=== PATIENT | female | born 1935 | race Caucasian/White ===

== ENCOUNTER 2021-09-02 15:31 | Inpatient (IN) | payer MEDICARE ==
[~2021-09-02] VITALS: Ht 154.9 cm; Wt 100.8 kg
[~2021-09-02 15:31] MED LIST: IBUPROFEN800 MG PO
[2021-09-02 16:27] LABS: BASOPHIL 0.6 % (0-2); EOSINOPHIL 5.8 % (0-7); HCT 35.6 % (37.0-47.0); LYMPHOCYTE 29.4 % (15-48); MCH 30.1 pg (25.0-31.0); MCHC 30.9 g/dL (32.0-36.0); MCV 97.5 fL (78.0-100.0); MONOCYTE 8.9 % (0-12); MPV 9.7 fL (6.0-9.5); NEUTROPHIL 55.2 % (41-80); NRBC 0; PLT 218 K/uL (150-400); RBC 3.65 M/uL (4.20-5.40); RDW 14.5 % (11.5-14.0); WBC 6.8 K/uL (4.0-10.5)
[2021-09-02 16:35] LABS: INR 1.12 (0.9-1.2); PROTHROMBIN TIME 13.8 SECONDS (11.8-13.4); PTT 28.9 SECONDS (24.4-34.7)
[2021-09-02 16:59] LABS: BILIRUBIN NEGATIVE (NEGATIVE); BLOOD NEGATIVE Ery/uL (NEGATIVE); CLARITY CLEAR (CLEAR); COLOR YELLOW (YELLOW); GLUCOSE (U) NORMAL (NORMAL); LEUKOCYTES NEGATIVE Leu/uL (NEGATIVE); NITRITE NEGATIVE (NEGATIVE); PROTEIN NEGATIVE (NEGATIVE); UROBILINOGEN 0.2 mg/dL (0.2-1.0)
[2021-09-02 17:09] LABS: ALBUMIN 3.2 g/dL (3.4-5.0); BILIRUBIN - TOTAL 0.2 mg/dL (0.2-1.0); BUN/CREAT RATIO (CALC) 26.3 RATIO; C-REACTIVE PROTEIN 2.4 mg/dL (<=0.90); CREATININE 0.95 mg/dL (0.51-0.95); FT4 (FREE T4) 0.8 ng/dL (0.76-1.46); GLOBULIN (CALCULATION) 3.8 g/dL; MAGNESIUM 2.1 mg/dL (1.8-2.4); POTASSIUM 3.2 mmol/L (3.5-5.1)
[2021-09-02] MEDS ORDERED: ACETAMINOPHEN500 M1 PO (21:42)
[2021-09-02] MEDS ORDERED: DIAMOX250 MG PO (21:43)
[2021-09-02] MEDS ORDERED: ASPIRIN EC325 MG PO (21:44)
[2021-09-02] MEDS ORDERED: COLACE100 MG PO (21:44)
[2021-09-02] MEDS ORDERED: DORZOLAMIDE-TI1 EACH EYEBOTH (21:45)
[2021-09-02] MEDS ORDERED: CYMBALTA 30MG C30 MG PO ×3 (21:46→21:47)
[2021-09-02] MEDS ORDERED: LASIX20 MG PO (21:51)
[2021-09-02] MEDS ORDERED: HYDROCODON-ACE1 EAC2 PO (21:52)
[2021-09-02] MEDS ORDERED: IRON325 M1 PO ×2 (21:52→21:54)
[2021-09-02] MEDS ORDERED: SYNTHROID25 MCG PO (21:56)
[2021-09-02] MEDS ORDERED: CLARITIN10 MG PO (21:56)
[2021-09-02] MEDS ORDERED: LUMIGAN5 ML OU (21:56)
[2021-09-02] MEDS ORDERED: ROBAXIN500 MG PO (21:57)
[2021-09-02] MEDS ORDERED: PILOCARPINE HCL OD (21:58)
[2021-09-02] MEDS ORDERED: PRILOSEC20 MG PO (21:58)
[2021-09-02] MEDS ORDERED: PINDOLOL5 MG PO (22:00)
[2021-09-02] MEDS ORDERED: KLOR-CON 1010 MEQ PO (22:02)
[2021-09-02] MEDS ORDERED: PRESERVISION A1 EACH PO (22:03)
[2021-09-02] MEDS ORDERED: TRIAMCINOLONE 080 GM TOP (22:04)
[2021-09-02] MEDS ORDERED: VITAMIN B-121000 MC1 PO (22:05)
[2021-09-02] MEDS ORDERED: TUMS200 MG PO (22:05)
[2021-09-02] MEDS ORDERED: VITAMIN D31250 MC1 PO (22:06)
[2021-09-03 05:54] LABS: BASOPHIL 0.5 % (0-2); EOSINOPHIL 5.7 % (0-7); HCT 35.7 % (37.0-47.0); LYMPHOCYTE 30.7 % (15-48); MCH 29.8 pg (25.0-31.0); MCHC 30.8 g/dL (32.0-36.0); MCV 96.7 fL (78.0-100.0); MONOCYTE 8.7 % (0-12); MPV 9.7 fL (6.0-9.5); NEUTROPHIL 54.1 % (41-80); NRBC 0; PLT 231 K/uL (150-400); RBC 3.69 M/uL (4.20-5.40); RDW 14.5 % (11.5-14.0); WBC 7.6 K/uL (4.0-10.5)
[2021-09-03 06:21] LABS: BUN/CREAT RATIO (CALC) 25.3 RATIO; CREATININE 0.87 mg/dL (0.51-0.95); POTASSIUM 2.8 mmol/L (3.5-5.1)
[2021-09-03 18:41] LABS: BUN/CREAT RATIO (CALC) 26.1 RATIO; CREATININE 0.92 mg/dL (0.51-0.95); POTASSIUM 3.6 mmol/L (3.5-5.1)
[2021-09-04 06:09] LABS: BASOPHIL 0.5 % (0-2); EOSINOPHIL 5.7 % (0-7); HCT 35.8 % (37.0-47.0); HGB 10.8 g/dl (12.5-16.0); LYMPHOCYTE 24.5 % (15-48); MCH 29.6 pg (25.0-31.0); MCHC 30.2 g/dL (32.0-36.0); MCV 98.1 fL (78.0-100.0); MONOCYTE 8.9 % (0-12); MPV 9.7 fL (6.0-9.5); NEUTROPHIL 60.1 % (41-80); NRBC 0; PLT 245 K/uL (150-400); RBC 3.65 M/uL (4.20-5.40); RDW 14.6 % (11.5-14.0); WBC 6.6 K/uL (4.0-10.5)
[2021-09-04 06:39] LABS: BUN/CREAT RATIO (CALC) 25.8 RATIO; CREATININE 0.89 mg/dL (0.51-0.95); MAGNESIUM 1.9 mg/dL (1.8-2.4); POTASSIUM 3.5 mmol/L (3.5-5.1)
[2021-09-05 06:01] LABS: BASOPHIL 0.4 % (0-2); EOSINOPHIL 6.2 % (0-7); HCT 38.4 % (37.0-47.0); HGB 11.6 g/dl (12.5-16.0); LYMPHOCYTE 24.7 % (15-48); MCH 29.3 pg (25.0-31.0); MCHC 30.2 g/dL (32.0-36.0); MONOCYTE 9.8 % (0-12); MPV 9.9 fL (6.0-9.5); NEUTROPHIL 58.6 % (41-80); NRBC 0; PLT 244 K/uL (150-400); RBC 3.96 M/uL (4.20-5.40); RDW 14.5 % (11.5-14.0); WBC 6.9 K/uL (4.0-10.5)
[2021-09-05 06:32] LABS: CREATININE 0.9 mg/dL (0.51-0.95); MAGNESIUM 1.9 mg/dL (1.8-2.4); POTASSIUM 3.2 mmol/L (3.5-5.1)
[2021-09-05] MEDS ORDERED: ELIQUIS5 MG PO ×2 (16:58→17:00)
[2021-09-05] MEDS ORDERED: LOPRESSOR50 MG PO ×2 (16:58→17:00)
[2021-09-05] MEDS ORDERED: LASIX40 MG PO ×2 (16:58→17:00)
[2021-09-05] MEDS ORDERED: POTASSIUM CHLO20 ME1 PO ×2 (16:58→17:00)
[2021-09-05] MEDS ORDERED: DIGITEK125 MCG PO ×2 (16:58→17:00)
== END 2021-09-05 18:55 | disposition home health service (06) | DRG 291 ==
LOC: FER 15:31 → FTCU 20:09
PROVIDERS: Emergency Medicine; Internal Medicine; Nurse Practitioner; Nurse Practitioner Family; ADMIT Allergy & Immunology Allergy
DX: I13.0 Hypertensive heart and chronic kidney disease with heart failure and stage 1 through stage 4 chronic kidney disease, or unspecified chronic kidney disease (principal); I50.31 Acute diastolic (congestive) heart failure; I48.91 Unspecified atrial fibrillation; Z66 Do not resuscitate; Z20.822 Contact with and (suspected) exposure to COVID-19; N18.9 Chronic kidney disease, unspecified; D63.1 Anemia in chronic kidney disease; G47.33 Obstructive sleep apnea (adult) (pediatric); K21.9 Gastro-esophageal reflux disease without esophagitis; E03.9 Hypothyroidism, unspecified; M54.50 Low back pain, unspecified; G89.29 Other chronic pain; I08.1 Rheumatic disorders of both mitral and tricuspid valves; H54.8 Legal blindness, as defined in USA; E78.5 Hyperlipidemia, unspecified; M81.0 Age-related osteoporosis without current pathological fracture; H40.9 Unspecified glaucoma; M41.9 Scoliosis, unspecified; M19.90 Unspecified osteoarthritis, unspecified site; Z98.890 Other specified postprocedural states; Z88.1 Allergy status to other antibiotic agents; Z88.5 Allergy status to narcotic agent; Z79.82 Long term (current) use of aspirin; Z79.899 Other long term (current) drug therapy; Z82.49 Family history of ischemic heart disease and other diseases of the circulatory system
CPT/HCPCS: 36415; 71045; 80048; 80053; 80061; 81003; 83735; 83880; 84439; 84443; 84484; 85025; 85610; 85730; 86140; 93005; 94762; 97162; 97166; 97530-GP; 97535; G0378; J1160; J1650; U0002